=== PATIENT | male | born 1940 | race Caucasian/White ===

== ENCOUNTER 2019-08-14 19:39 | Emergency (ER) | payer MEDICARE, OTHER ==
[~2019-08-14] VITALS: Ht 177.8 cm; Wt 93.8 kg
--- NOTE | 2019-08-14 20:34 | NUR ---
PT HAS CO OF BACK PAIN AND DYSURIA, HEMATURIA. PT IS [place], FAMILY PRESENT. PT INSTRUCTED FOR UA. PT PREVIOUSLY VOIDED. PT WAS AT URGENT CARE BUT STATES "THEY DID NOT DIAGNOSE HIM RIGHT, I THINK IT IS MY KIDNEYS"
[2019-08-14 20:57] LABS: BASOPHILS # (AUTO) 0.03 x10^3/uL (0-0.1); BASOPHILS % (AUTO) 0 % (0-1); EOSINOPHILS # (AUTO) 0.26 x10^3/uL (0-0.4); EOSINOPHILS % (AUTO) 2 % (1-7); LYMPHOCYTES # (AUTO) 1.57 x10^3/uL (1-3.4); LYMPHOCYTES % (AUTO) 14 % (22-44); MD NO; MEAN CORPUSCULAR HEMOGLOBIN 31.5 pg (27.5-34.5); MEAN CORPUSCULAR HGB CONC 33.7 g/dL (33.2-36.2); MEAN CORPUSCULAR VOLUME 93.4 fL (81-97); MEAN PLATELET VOLUME 8.8 fL (7.4-10.4); MONOCYTES # (AUTO) 0.93 x10^3/uL (0.2-0.8); MONOCYTES % (AUTO) 8 % (2-9); NEUTROPHILS # (AUTO) 8.24 x10^3/uL (1.8-6.8); NEUTROPHILS % (AUTO) 75 % (42-75); PLATELET COUNT 219 x10^3/uL (130-400); RED BLOOD COUNT 4.93 x10^6/uL (4.38-5.82); RED CELL DISTRIBUTION WIDTH 13.3 % (9.4-14.8)
--- NOTE | 2019-08-14 21:01 | NUR ---
REPORT TO [facility]
[2019-08-14 21:17] LABS: ALANINE AMINOTRANSFERASE 23 U/L (12-78); ALBUMIN 3.5 g/dL (3.4-5.0); ANION GAP 8 mmol/L (5-15); CALCIUM 9.3 mg/dL (8.5-10.1); CHLORIDE 107 mmol/L (98-107)
[2019-08-14 21:21] LABS: ALKALINE PHOSPHATASE 69 U/L (45-117); BILIRUBIN,TOTAL 1.2 mg/dL (0.2-1.0); TOTAL PROTEIN 7.2 g/dL (6.4-8.2); TROPONIN I < 0.015 ng/mL (0.000-0.045)
--- NOTE | 2019-08-14 21:21 | NUR ---
UA COLLECTED AND SENT TO LAB. CONNECTED TO ALL MONITORING. FAMILY AT BEDSIDE.
[2019-08-14 21:40] LABS: MICROSCOPIC NOT IND
[2019-08-14 21:44] LABS: CULTURE INDICATED? NO
[2019-08-14] MEDS ORDERED: SODIUM CHLORIDE FLUSH 10ML SYR IVF ONE (22:00)
[2019-08-14 22:45] VITALS: BP 120/61
--- NOTE | 2019-08-14 22:46 | NUR ---
ALL RESULTS ARE BACK AT THIS TIME. CHART UP FOR RECHECK. PT RESTING ON [employer] WATCHING TV. MIKE.
== END 2019-08-15 00:01 | disposition home or self-care (01) ==
LOC: ED 23:15
DX: N28.9 Disorder of kidney and ureter, unspecified (principal); M54.5 Low back pain; R19.7 Diarrhea, unspecified; R31.9 Hematuria, unspecified; E11.9 Type 2 diabetes mellitus without complications; I25.2 Old myocardial infarction; Z86.73 Personal history of transient ischemic attack (TIA), and cerebral infarction without residual deficits
CPT/HCPCS: 36415; 80053; 81003; 83690; 84484; 85025; 93005; 99284